=== PATIENT | female | born 1965 | race Caucasian/White ===

== ENCOUNTER 2018-05-23 11:51 | Day surgery (SDC) | payer OTHER ==
[~2018-05-23] VITALS: Ht 165.1 cm; Wt 73.7 kg
[2018-05-23] VITALS (10 sets, daily range): BP systolic 91–145; BP diastolic 51–87; PULSE 66–91; TEMP 97.8–98.3
[2018-05-23] MEDS ORDERED: LEVAQUIN 5500 MG/TA1 PO (13:08)
[2018-05-23] MEDS ORDERED: SYNTHROID0.1 MG/TAB PO (13:09)
[2018-05-23] MEDS ORDERED: CEPHALEXIN500 M1 PO (13:10)
[2018-05-23] MEDS ORDERED: NAPROSYN500 MG PO (13:10)
[2018-05-23] MEDS ORDERED: NEURONTIN300 MG/CAP PO (13:11)
[2018-05-23] MEDS ORDERED: AMBIEN 5MG TABLE5 MG PO (13:11)
[2018-05-23] MEDS ORDERED: NORCO 325 MG-51 TAB PO (13:12)
[2018-05-23] MEDS ORDERED: FLEXERIL5 MG PO (13:12)
[2018-05-23] MEDS ORDERED: BUSPAR10 MG PO (13:13)
[2018-05-23] MEDS ORDERED: EFFEXOR-XR150 MG PO (13:13)
[2018-05-23] MEDS ORDERED: PROAIR HFA0.09 MG/AC IH (13:14)
[2018-05-23] MEDS ORDERED: SPIRIVA RE2.5 MCG/Ac IH (13:15)
[2018-05-23] MEDS ORDERED: VITAMINC1000TA PO (13:16)
[2018-05-23] MEDS ORDERED: VITAMIN D 400400 IU PO (13:17)
[2018-05-23] MEDS ORDERED: NATURAL POTASS595 MG PO (13:17)
[2018-05-23] MEDS ORDERED: ATROVENT I0.2 MG/1 M IH (13:18)
--- NOTE | 2018-05-23 14:35 | NUR ---
returned to room 323 per bed from PACU, awake and alert, IV infusing per dial a krishna at 100ml/hr, O2 on at 2L/NC, peripad in place and is without drainage, esquivel cath patent draining clear yellow urine, c/o some discomfort but states it is tolerable, given water to drink
--- NOTE | 2018-05-23 14:45 | NUR ---
rests between check, full assessment completed, see interventions for further info, has hoarse cough but lungs CTA,
--- NOTE | 2018-05-23 15:00 | NUR ---
called nurse to room and is c/o some nausea, no emesis but having dry heaves,
--- NOTE | 2018-05-23 15:15 | NUR ---
Dr Mueller notified and order received for nausea,
--- NOTE | 2018-05-23 15:44 | NUR ---
resting quietly with eyes closed, medicated with zofran 4mg slow IV
--- NOTE | 2018-05-23 16:21 | NUR ---
appears to be sleeping, in bed with eyes closed, resp quiet and easy
--- NOTE | 2018-05-23 17:15 | NUR ---
awake and talking with had part of supper and tolerated well, then gave her scheduled meds, she then through up large amount pink liquid emesis and part of meds seen in emesis, will hold the meds for now, encouraged to only take sips of water for now, verbalizes understanding
--- NOTE | 2018-05-23 18:31 | NUR ---
appears to be sleeping, awakened and vital signs taken, denies pain or needs
--- NOTE | 2018-05-23 18:55 | NUR ---
bedside shift report given to MONI Gilliland
--- NOTE | 2018-05-23 20:00 | NUR ---
Patient in bed resting. Alert and oriented x 3. Shift assessment complete. Macias to dependent drainage with clear yellow urine present. Peripad with scant drainage. Patient denies pain at this time, however states mild headache. Denies nausea at this time. Offered patient crackers, tolerated without nausea/vomiting. Denies further needs at this time.
--- NOTE | 2018-05-23 20:28 | NUR ---
PT ON 2LPM OF 02, NO 02 ORDER IN. PT FINE SATS IN HIGH 90S NO DISTRESS NOTED.
[2018-05-24 00:06] VITALS: BP 101/62; PULSE 73; TEMP 98
[2018-05-24 03:30] VITALS: BP 116/73; PULSE 65; TEMP 97.9
--- NOTE | 2018-05-24 05:53 | NUR ---
Patient has rested well through the night. Minimal needs. Hot pack provided for lower abdominal cramping. Continues to deny pain at this time. Denies nausea or further needs at this time. Will report off to day shift.
[2018-05-24 08:30] VITALS: BP 126/82; PULSE 75; TEMP 98.1
--- NOTE | 2018-05-24 11:47 | NUR ---
Plan to return home to [place], patient independent and transporting self. Assess: Patient reports daily independent living, patient reports that use of a cane sporadically prn. Patient reports that use of [facility] for RX, pcp os Dr. Bustamante and stated that she provided DPOA PPW on arrival. Patient denies having any addtional needs and is awaiting DC. Action: No additonal needs identified.
--- NOTE | 2018-05-24 11:55 | NUR ---
Plan to return to [facility] with Odilon [phone]. Assess: Patient reports that he will transport home. Patient indicated that pcp is Dr. Horta and she has a follow-up scheduled for the May. Patient reports that use of [facility] in [place] for medications and uses a Nebulixer prn. Denies having a written HPOC. No additonal needs identified at this time.
--- NOTE | 2018-05-24 13:00 | NUR ---
Dr. Mueller saw patient. Macias catheter dc'd per order. Abdominal pain and headache improved with [place]. Ambulatory in room. Voided without difficulty. Has antibiotic at home. Dismissed to home with spouse.
--- NOTE | 2018-05-24 13:09 | NUR ---
Instrument Calibrator prayed and offered support with patient while family was in room.
== END 2018-05-24 13:00 | disposition home or self-care (01) ==
LOC: SDCO 11:51 → SURG 14:59 → SDCO 05-24 13:00
DX: T81.30XA Disruption of wound, unspecified, initial encounter (principal); T19.2XXA Foreign body in vulva and vagina, initial encounter; M19.90 Unspecified osteoarthritis, unspecified site; J45.909 Unspecified asthma, uncomplicated; F32.9 Major depressive disorder, single episode, unspecified; E03.9 Hypothyroidism, unspecified; F17.210 Nicotine dependence, cigarettes, uncomplicated; M79.5 Residual foreign body in soft tissue; L02.211 Cutaneous abscess of abdominal wall; N39.46 Mixed incontinence; R35.1 Nocturia; K59.00 Constipation, unspecified; Z90.710 Acquired absence of both cervix and uterus; Z90.721 Acquired absence of ovaries, unilateral; Z79.52 Long term (current) use of systemic steroids; Z87.448 Personal history of other diseases of urinary system; Z83.3 Family history of diabetes mellitus; Z82.49 Family history of ischemic heart disease and other diseases of the circulatory system; Z80.42 Family history of malignant neoplasm of prostate
CPT/HCPCS: OP; A4314; A9284; J0690; J1100; J1170; J2405; J2704; J2710; J2765; J3010; J7120

== ENCOUNTER 2019-03-24 15:04 | Day surgery (SDC) | payer OTHER ==
[2019-03-24] VITALS (7 sets, daily range): BP systolic 104–124; BP diastolic 67–78; PULSE 54–74; TEMP 97.4–98.1
[~2019-03-24] VITALS: Ht 170.2 cm; Wt 74.0 kg
[~2019-03-24 15:04] MED LIST: AMBIEN 5MG TABLE5 MG PO; ATROVENT I0.2 MG/1 M IH; BUSPAR10 MG PO; CEPHALEXIN500 M1 PO; EFFEXOR-XR150 MG PO; FLEXERIL5 MG PO; LEVAQUIN 5500 MG/TA1 PO; NAPROSYN500 MG PO; NATURAL POTASS595 MG PO; NEURONTIN300 MG/CAP PO; NORCO 325 MG-51 TAB PO; PROAIR HFA0.09 MG/AC IH; SPIRIVA RE2.5 MCG/Ac IH; SYNTHROID0.1 MG/TAB PO; VITAMIN D 400400 IU PO; VITAMINC1000TA PO
[2019-03-24] MEDS ORDERED: BREO IH (15:45)
[2019-03-24] MEDS ORDERED: BACTRIM DS 8001 TAB PO (15:46)
[2019-03-24] MEDS ORDERED: LAMICTAL 100MG100 MG PO (15:46)
[2019-03-24] MEDS ORDERED: BREO ELLIPTA 21 EACH IH ×2 (15:47→15:48)
--- NOTE | 2019-03-24 19:26 | NUR ---
RECEIVED REPORT FROM PACU, PATIENT ADMIT TO ROOM. DRINKING COFFEE WITH NO C/O NAUSEA. IVF RUNNING WITH NO PROBLEMS. OBSERVED SOME SHIVERING. REPORTS PAIN 5/10 TO ABD. DENIES URGE TO VOID.
--- NOTE | 2019-03-24 20:49 | NUR ---
N/V, ZOFRAN GIVEN IV, REPORTS PAIN LEVEL 5/10 AFTER TAKEN 1 PERCOCET WITH PATIENT INITIALLY NOT WANTING ADDITIONAL MEDS BUT AGREED TO TAKE MORE PAIN MEDS, SEE EMAR.
--- NOTE | 2019-03-24 23:20 | NUR ---
PATIENT REPORTS HAVING MILD PAIN, DENIES NAUSEA. READY TO GO HOME. DRESSING TO SURGICAL SITE INTACT.
--- NOTE | 2019-03-24 23:50 | NUR ---
PATIENT HEALTH SUMMARY, DISCHARGE SUMMARY AND HOME MEDS PRINTED AND REVIEWED WITH PATIENT AND WITH NO FURTHER NEEDS REPORTED. PATIENT INFORMED DOCTOR'S OFFICE WILL CONTACT PATIENT REGARDING FOLLOW UP APPT. REVIEWED MEDICATIONS, PROVIDED PRINTED PRESCRIPTION FOR NORCO TO PATIENT'S SPOUSE. BELONGINGS GATHERED BY PATIENT AND PATIENT TRANSPORTED VIA WHEELCHAIR ACCOMPANIED BY HOSPITAL STAFF. PATIENT TRANSPORTED HOME VIA PRIVATE VEHICLE. PATIENT AND SPOUSE DENIES FURTHER QUESTIONS.
== END 2019-03-24 23:50 | disposition home or self-care (01) ==
LOC: SDCO 15:04 → SURG 19:15 → SDCO 23:50
DX: L02.211 Cutaneous abscess of abdominal wall (principal); M19.90 Unspecified osteoarthritis, unspecified site; J45.909 Unspecified asthma, uncomplicated; F32.9 Major depressive disorder, single episode, unspecified; E03.9 Hypothyroidism, unspecified; F17.210 Nicotine dependence, cigarettes, uncomplicated; J44.9 Chronic obstructive pulmonary disease, unspecified; G89.29 Other chronic pain; F41.9 Anxiety disorder, unspecified; Z90.710 Acquired absence of both cervix and uterus; Z90.721 Acquired absence of ovaries, unilateral; Z79.52 Long term (current) use of systemic steroids; Z83.3 Family history of diabetes mellitus; Z82.49 Family history of ischemic heart disease and other diseases of the circulatory system; Z80.42 Family history of malignant neoplasm of prostate
CPT/HCPCS: OP; J0690; J2405; J2704; J3010; J7120